=== PATIENT | male | born 1995 | race American Indian/Alaskan Native ===

== ENCOUNTER 2017-04-27 21:20 | Outpatient (CLI) | payer SELFPAY | END 2017-04-27 21:35 | LOC: LDOP 21:20 | PROVIDERS: ATTEND Obstetrics & Gynecology | DX: Z02.9 Encounter for administrative examinations, unspecified (principal) ==

== ENCOUNTER 2017-04-27 21:33 | Outpatient (CLI) | payer SELFPAY | END 2017-04-27 21:35 | LOC: LDOP 21:33 | PROVIDERS: ATTEND Obstetrics & Gynecology | DX: Z02.9 Encounter for administrative examinations, unspecified (principal) ==